=== PATIENT | male | born 1995 | race Caucasian/White ===

== ENCOUNTER 2017-01-16 01:52 | Emergency (ER) | payer OTHER ==
[2017-01-16] MEDS ORDERED: AMOXICILLIN500 M1 PO (02:06)
[2017-01-16 02:23] LABS: BASO % 0.2 % (0-2); EOS % 1.3 % (0-7); EOSINOPHIL ABSOLUTE COUNT 0.1 tho/cmm (0.0-0.7); HCT-HEMATOCRIT 38.2 % (36.0-53.5); HGB-HEMOGLOBIN 13.3 gm/dl (13.5-17.0); IMMATURE GRANULOCYTES ABSOLUTE 0.02 tho/cmm (0-0.03); IMMATURE GRANULOCYTES PERCENT 0.2 % (0-0.3); LYMPH ABSOLUTE COUNT 1.2 tho/cmm (0.8-4.5); MCH (MEAN CORPUSCULAR HGB) 29.4 pg (28.0-32.0); MCHC MEAN CORPUSCULAR HGB CONC 34.8 % (32.0-36.0); MCV (MEAN CELL VOLUME) 84.5 fl (82.0-96.0); MEAN PLATELET VOLUME 10.1 cmc (9.4-12.4); MONO % 8.3 % (0-12); MONOCYTE ABSOLUTE COUNT 0.8 tho/cmm (0.0-1.2); PLATELET COUNT 250 tho/cmm (150-450); RED BLOOD COUNT 4.52 mil/cmm (4.40-5.70); RED CELL DISTRIBUTION WIDTH 11.8 % (12.4-16.4); WHITE BLOOD COUNT 9.1 tho/cmm (4.0-10.0)
[2017-01-16 02:46] LABS: ALB/GLOB RATIO 1.2 (0.8-2.0); ALBUMIN 4.1 g/dl (3.5-5.0); ALKALINE PHOSPHATASE 88 U/L (33-138); ALT/SGPT 19 U/L (12-78); ANION GAP 12 mmol/L (0-20); AST/SGOT 13 U/L (10-40); BILIRUBIN,TOTAL 0.4 mg/dl (0.0-1.5); BLOOD UREA NITROGEN 9 mg/dl (6-24); CALCIUM 8.9 mg/dl (8.5-10.5); CARBON DIOXIDE-VENOUS 27 mmol/L (22-32); CHLORIDE 102 mmol/l (96-110); GLUCOSE 115 mg/dL (70-110); POTASSIUM 3.2 mmol/L (3.7-5.1); SODIUM 138 mmol/L (135-145); eGFR VALUE FOR BLACK >90 mL/Min
[2017-01-16 02:53] LABS: URINE BILIRUBIN NEGATIVE (NEG); URINE BLOOD NEGATIVE (NEG); URINE GLUCOSE (UA) NEGATIVE (NEG); URINE KETONE NEGATIVE (NEG); URINE LEUKOCYTE ESTERASE NEGATIVE (NEG); URINE NITRITE NEGATIVE (NEG); URINE PROTEIN NEGATIVE (NEG)
[2017-01-16 02:56] LABS: URINE APPEARANCE CLEAR; URINE COLOR YELLOW
[2017-01-16 04:07] LABS: PROCALCITONIN <0.05 ng/ml (0.05-0.09)
[2017-01-16] MEDS ORDERED: VENTOLIN HFA18 G2 PO (04:10)
[2017-01-16] MEDS ORDERED: PREDNISONE20 M1 PO (04:10)
== END 2017-01-16 04:32 ==
LOC: EDMED 01:52
PROVIDERS: Emergency Medicine
DX: J20.9 Acute bronchitis, unspecified (principal); R65.10 Systemic inflammatory response syndrome (SIRS) of non-infectious origin without acute organ dysfunction; E86.0 Dehydration
CPT/HCPCS: J7030

== ENCOUNTER 2017-02-20 22:33 | Emergency (ER) | payer OTHER ==
[~2017-02-20 22:33] MED LIST: AMOXICILLIN500 M1 PO; PREDNISONE20 M1 PO; VENTOLIN HFA18 G2 PO
[2017-02-20] MEDS ORDERED: ZITHROMAX500 M2 PO (22:39)
[2017-02-20] MEDS ORDERED: IBUPROFEN600 M1 PO (23:49)
== END 2017-02-20 23:55 ==
LOC: EDMED 22:33
DX: R07.89 Other chest pain (principal)
CPT/HCPCS: J1885